=== PATIENT | male | born 1960 | race American Indian/Alaskan Native ===

== ENCOUNTER 2018-12-03 14:01 | Emergency (ER) | payer MEDICAID, OTHER ==
[2018-12-03 14:01] VITALS: BMI 28.2
[2018-12-03 14:11] VITALS: BP 120/82; PULSE 66; RESP 16; TEMP 97.5; O2SAT 95
--- NOTE | 2018-12-03 14:47 | ED PDOC ---
HPI: Headache Time Seen by Provider: 12/03/18 14:20 Chief Complaint (Nursing): Headache Chief Complaint (Provider): Headache History Per: Patient History/Exam Limitations: no limitations Onset/Duration Of Symptoms: Hrs (x13) Current Symptoms Are (Timing): Better Quality: "Pain" Associated Symptoms: denies: Photophobia, Blurred Vision, Extremity Weakness Additional Complaint(s): 58 year old male with no PMHx presents to the ED with headache. Patient states he works at night and after getting home from work he began having a headache. Patient currently rates pain as a 3 out of 10, previously pain was a 9 out of 10. He denies taking any medications for pain. Patient woke up with some improvement in symptoms, but it persisted. His job instructed him to be evaluated by a physician. He denies any weakness, speech disturbances, visual changes, photophobia, fever, chills, nasal congestion or any other medical comp laints. Patient denies any history of hypertension, migraines, hyperlipidemia, CAD or stroke. PMD: none provided Past Medical History Reviewed: Historical Data, Nursing Documentation, Vital Signs Vital Signs: Last Vital Signs Temp 97.5 F L 12/03/18 14:08 Pulse 66 12/03/18 14:08 Resp 16 12/03/18 14:08 BP 120/82 12/03/18 14:08 Pulse Ox 95 12/03/18 14:08 - Medical History PMH: No Chronic Diseases - Family History Family History: States: Unknown Family Hx - Social History Current smoker - smoking cessation education provided: No Ex-Smoker (has not smoked in the last 12 months): No Alcohol: Occasional Drugs: Cannabis (occasional) - Home Medications Home Medications: Ambulatory Orders Medication Instructions Recorded Ibuprofen [Motrin] 600 mg PO Q6H PRN #20 tab 10/07/16 Oseltamivir Cap [Tamiflu] 75 mg PO BID #10 cap 10/17/16 Promethazine/Codeine 5 ml PO Q8 #60 ml 10/17/16 [Codeine/Promethazine 10 MG/5 Ml-6.25 MG/5 Ml] Ibuprofen [Motrin Tab] 600 mg PO Q6 PRN 7 Days tab 12/03/18 - Allergies Allergies/Adverse Reactions: Allergies Allergy/AdvReac Type Severity Reaction Status Date / Time No Known Allergies Allergy Verified 12/03/18 14:07 Review of Systems ROS Statement: Except As Marked, All Systems Reviewed And Found Negative Constitutional: Negative for: Fever, Chills Eyes: Negative for: Vision Change ENT: Negative for: Nose Congestion Neurological: Positive for: Headache. Negative for: Weakness, Numbness Physical Exam - Reviewed Nursing Documentation Reviewed: Yes Vital Signs Reviewed: Yes - Physical Exam Appears: Positive for: Non-toxic, No Acute Distress Head Exam: Positive for: ATRAUMATIC, NORMOCEPHALIC Skin: Positive for: Normal Color, Warm, Dry Eye Exam: Positive for: Normal appearance, EOMI, PERRL, Conjunctival injection (mild) ENT: Positive for: Normal ENT Inspection Neck: Positive for: Normal, Painless ROM, Supple Cardiovascular/Chest: Positive for: Regular Rate, Rhythm. Negative for: Murmur Respiratory: Positive for: Normal Breath Sounds. Negative for: Respiratory Distress Extremity: Positive for: Normal ROM (upper and lower). Negative for: Pedal Edema, Deformity Neurological/Psych: Positive for: Awake, Alert, Oriented (x3), Other (\\) - ECG O2 Sat by Pulse Oximetry: 95 (RA) Pulse Ox Interpretation: Normal Medical Decision Making Medical Decision Making: Time: 1433 Plan: --Ibuprofen 600 Time: 1442 --Patient is medically cleared to be discharged home. ScribeAttestation: Documented bySavannha Kingston, acting as a scribe for Shu Fuller PA-C. Provider ScribeAttestation: All medical record entries made by the Scribe were at my direction and personally dictated by me. I have reviewed the chart and agree that the record accurately reflects my personal performance of the history, physical exam, medical decision making, and the department course for this patient. I have also personally directed, reviewed, and agree with the discharge instructions and disposition. Disposition - Clinical Impression Clinical Impression: Headache - Disposition Referrals: [facility] [Outside] Disposition Time: 14:42 Condition: STABLE Additional Instructions: Follow up with your primary care doctor for further evaluation of headache. Take Ibuprofen or Tylenol for pain. REturn to ER if your pain worsens or you begin to have weakness, trouble with your speech. Prescriptions: Ibuprofen [Motrin Tab] 600 mg PO Q6 PRN 7 Days tab PRN Reason: Pain, Moderate (4-7) Instructions: Tension Headache (DC) Forms: [employer] [facility] ([place]adian), [facility] ED School/Work Excuse Print Language: SERBIAN
== END 2018-12-03 14:52 | disposition home or self-care (01) ==
LOC: H.ER 14:01
DX: R51 Headache (principal)